=== PATIENT | female | born 1960 | race Caucasian/White ===

== ENCOUNTER → 2017-03-27 | Day surgery (SDC) | payer BC ==
--- NOTE | 2017-03-26 08:54 | MH ---
cc: PRAFUL PATHAK MD DATE OF ADMISSION: 03/27/2017 HISTORY OF PRESENT ILLNESS The patient is a 57-year-old white female. 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 HISTORY OF PRESENT ILLNESS The patient is well-known to our practice. She was seen recently for colposcopy due to low-grade squamous intraepithelial lesion. The colposcopy, however, was inadequate because the transformation zone was not totally visualized. We gave her the option of continuing with Pap smears every six months or proceeding with loop electrical excisional procedure. The patient opted for loop electrical excisional procedure, stating that she had such a long history of abnormal Paps and that this has never been truly addressed. The risks from the procedure of loop electrical excision were discussed at length. PAST SURGICAL HISTORY 1. Nasal surgery x2. 2. Cardiac ablation. 3. Spine surgery. SOCIAL HISTORY She is a non-smoker, non-drinker; however, she was a previous smoker but quit in 1991. MEDICATIONS 1. Estrogen cream vaginally. 2. Topamax 50 mg b.i.d. 3. Crestor 40 mg daily. 4. Metformin 500 mg b.i.d. 5. Lasix 20 mg. 6. Doxepin 25 mg capsule q.h.s. REVIEW OF SYSTEMS Essentially noncontributory. PHYSICAL EXAMINATION GENERAL: The patient was seen well-developed, well-nourished, in no acute distress. VITAL SIGNS: Blood pressure 110/64, pulse 70, respirations 12. HEENT: Negative. CHEST: Clear to auscultation. CARDIOVASCULAR: Regular rate. ABDOMEN: Soft. Bowel sounds positive. PELVIC: Normal size uterus. Normal external genitalia. No adnexal masses palpable. EXTREMITIES: No clubbing, cyanosis or edema. NEUROPSYCHIATRIC: The patient is oriented x3, showed no gross neurocranial deficit. IMPRESSION Impression on admission is persistent low-grade squamous intraepithelial lesion with inadequate colposcopy. PLAN Loop electrical excisional procedure. MD LISANDRO Whitten/PATY /8:37 AM /8:42 AM
[~2017-03-27] VITALS: Ht 170.2 cm; Wt 72.4 kg
[~2017-03-27] MED LIST: ACETAMINOPHEN 1000 MG/100 ML 100 ML IV ONE; CHLORHEXIDINE GLUCONATE 2 % 1 PACK (2 CLOTHS) TOPICAL PRN; CLINDAMYCIN PHOS 600 MG/4 ML VIAL ONE; DO NOT ADM ANY ANTICOAGULANT DRUGS PRN; DOXE25CA2 PO; ESTR0.62 VAGINAL; FAMOTIDINE 20 MG/2 ML VIAL ONE; FLUC150T PO; FURO1TAB62 PO; INSULIN HUMAN REGULAR 1,000 UNITS/10 ML VIAL SQ PRN; LACTATED RINGER'S 1000 ML IV PRN; METF500T PO; METOPROLOL TARTRATE 25 MG TAB PO PRN; MIDAZOLAM HCL 2 MG/2 ML VIAL ONE; ONDANSETRON HCL 4 MG/2 ML VIAL IV PUSH ONE; POVIDONE IODINE 5% (ANTISEPSIS KIT) 4 APPLICATIONS EACH NARE PRN; PROPOFOL 200 MG/20 ML AMP IV ONE; ROSU40 PO; SODIUM CHLORID 0.9% 500 ML IV PRN; TOPA50TA7 PO; ceFAZolin 2 GM PREMIX 50 ML IV SCH; fentaNYL CITRATE 250 MCG/5 ML AMP ONE
[2017-03-27] MEDS: SODIUM CHLORIDE 0.9% INJ 100 ML ONE ×2 (06:44→06:47)
[2017-03-27] MEDS: CLINDAMYCIN 600 MG/NS 100 ML IV SCH ×4 (06:47→07:24)
[2017-03-27 08:45] VITALS: BP 228/50; PULSE 56; RESP 16; TEMP 97.5; O2SAT 100
--- NOTE | 2017-03-27 11:15 | EKG ---
Date Performed: 03/27/2017 Time Performed: 06:18:03 PTAGE: 57 years EKG: Sinus rhythm LOW QRS VOLTAGE IN EXTREMITY LEADS BORDERLINE ECG PREVIOUS TRACING : 08/20/1993 10.27 Compared to previous tracing, nonspecific ST changes have r esolved. DOCTOR: Chaim Cabello Interpretating Date/Time 03/27/2017 11:12:49
--- NOTE | 2017-03-29 10:07 | MP ---
cc: PRAFUL PATHAK MD DATE OF SURGERY: 03/27/2017 PREOPERATIVE DIAGNOSIS: Persistent squamous dysplasia of the cervix. POSTOPERATIVE DIAGNOSIS: Persistent squamous dysplasia of the cervix. OPERATION: Loop electrical excision using a two stage technique. SURGEON: MD Raquel. ANESTHESIA: General. ESTIMATED BLOOD LOSS: Minimal. COMPLICATIONS: None. FINDINGS: None. PROCEDURE: The patient was prepped, draped in the dorsolithotomy position, a weighed speculum was placed in the posterior vaginal wall. The anterior lip of the cervix was grasped with a single-tooth tenaculum. A wire loop was used to excise the transformation zone and then a smaller sized wire loop was used to excise a portion of the endocervical canal. After good hemostasis was noted, tenaculum and speculum were removed. The patient returned to the Recovery Room in stable condition. MD LISANDRO Whitten/kaleb /7:56 AM /10:00 AM
== END | disposition home or self-care (01) ==
LOC: HSDC 05:12
PROVIDERS: ATTEND Obstetrics & Gynecology
DX: N87.9 Dysplasia of cervix uteri, unspecified (principal); E11.9 Type 2 diabetes mellitus without complications; Z79.84 Long term (current) use of oral hypoglycemic drugs; Z01.810 Encounter for preprocedural cardiovascular examination; Z87.891 Personal history of nicotine dependence
CPT/HCPCS: 00940; 57522; 88307; 93005; J0131; J2250; J2405; J3010; J7120; 88305